=== PATIENT | female | born 1990 | race Caucasian/White ===

== ENCOUNTER 2017-04-08 05:50 | Inpatient (IN) ==
[2017-04-08 06:17] VITALS: BMI 28.4
[2017-04-08] MEDS: LR 1,000 ML IV PRN ×2 (06:35→08:28)
[2017-04-08] MEDS ORDERED: CALCIUM CARBONATE Chewable 500mg TABLET PO PRN (06:36)
[2017-04-08] MEDS ORDERED: MAG-AL + SIM ORAL LIQUID 30ml PO PRN (06:36)
[2017-04-08] MEDS ORDERED: METHYLERGONOVINE 0.2 MG/ML INJECTION IM PRN (06:36)
[2017-04-08] MEDS ORDERED: CARBOPROST 250 MCG/ML INJECTION IM PRN (06:36)
[2017-04-08] MEDS ORDERED: ACETAMINOPHEN 500 MG TABLET PO PRN (06:36)
[2017-04-08] MEDS ORDERED: LIDOCAINE 1% (10mg/ml) 2mL INJ PF SDV ID PRN (06:36)
[2017-04-08] MEDS ORDERED: AMPICILLIN 2 GM in NS 100 ML IV ONE (06:41)
[2017-04-08] MEDS ORDERED: NALOXONE 0.4 MG/ML INJECTION IVP PRN (07:44)
[2017-04-08] MEDS ORDERED: ROPIVACAINE 1% 10MG/ML INJ 200 MG, SUFentanil 50 MCG in NS 100 ML EPI PRN (07:44)
[2017-04-08] MEDS ORDERED: ONDANSETRON 4 MG/2 ML INJECTION IVP PRN (07:44)
[2017-04-08] MEDS ORDERED: DiphenhydrAMINE 50 MG/ML INJECTION IVP PRN (07:44)
--- NOTE | 2017-04-08 07:44 | Anesthesia Preoperative Report ---
Anesthesia Epidural/Spinal Rec - Date and Time Date: 04/08/17 Preoperative Diagnosis: Procedure: Labor Epidural Plan: Epidural - Vital Signs Vital Signs: Temperature 97.1 F 04/08/17 06:43 Pulse Rate 93 04/08/17 06:43 Respiratory Rate 18 04/08/17 06:43 Blood Pressure 135/85 04/08/17 06:43 Pulse Oximetry 98 04/08/17 06:43 /Para: P:1 - Medictaions & Allergies Inpatient Medications: Current Medications Acetaminophen (Tylenol) 500 - 1,000 mg PO Q4H PRN PRN Reason: Pain Al Hydroxide/Mg Hydroxide (Maalox Plus) 30 ml PO Q3H PRN PRN Reason: Indigestion Calcium Carbonate (Tums) 500 - 1,000 mg PO Q2H PRN PRN Reason: Indigestion Carboprost Tromethamine (Hemabate) 250 mcg IM O PRN PRN Reason: .Downtime Lactated Ringer's (Lactated Ringers) 1,000 mls @ 999 mls/hr IV .Q1H1M PRN Last Admin: 04/08/17 06:35 Dose: 999 mls/hr Ampicillin Sodium 1 gm/ Sodium (Chloride) 100 mls @ 200 mls/hr IV Q4H AIXA Lidocaine HCl (Xylocaine-Mpf 1% Vial) 0.2 mg ID O PRN PRN Reason: IV Start Methylergonovine Maleate (Methergine) 0.2 mg IM O PRN Misoprostol (Cytotec) 800 mcg NC ONCE PRN Allergies/Adverse Reactions: Allergies Allergy/AdvReac Type Severity Reaction Status Date / Time aspirin Allergy Intermediate SWELLING Verified 04/08/17 07:14 ibuprofen Allergy Intermediate SWELLING Verified 04/08/17 07:14 - Home Medications Home Medications: Home Medications Medication Instructions Recorded Confirmed Type Vit 18/Iron Cb/Fa/Dss 1 each PO DAILY #0 12/08/12 04/08/17 History ([facility] Tablet) raNITIdine HCl [Zantac] 1 tab PO DAILY 03/24/17 04/08/17 History - Surgical History Anesthesia Reactions: None Hx Family Anesthesia Reaction: No History of Motion Sickness: No - Social History Second Hand Exposure: No Substance Use Type: does not use Alcohol Intake Frequency: does not drink Hx Chewing Tobacco Use: No - Pertinent Findings Lab Data: CBC and BMP 04/08/17 06:42 EKG Rhythm: Normal Sinus Rhythm - Physical Exam Respiratory Exam: lungs clear Cardiovascular Exam: regular rate and rhythm, no murmur - Airway Assessment Mallampati Score: II TMD: 3 Fingerbreadths Neck Extension: good Overall Assessment: no airway concerns - ASA ASA Score: 2 - Discussion Discussion: Discussed risks/options/alternatives of anesthesia and questions answered. Patient consents. Nursing pain assessment noted. Anesthesia Discussion: spouse Attestation Statement: Prior to the delivery of any anesthetic medication, I examined the patient, developed the plan, obtained the patient's consent and discussed the risk and benefits of the procedure with the patient/guardian.
[2017-04-08] MEDS ORDERED: AMPICILLIN 1 GM in NS 100 ML IV SCH (10:45)
[2017-04-08] MEDS ORDERED: OXYTOCIN DRIP 30 UNIT/500 ML ML IV SCH (13:48)
[2017-04-08] MEDS ORDERED: HYDROCORTISONE 2.5% CREAM 30gm RECTALLY PRN (13:48)
[2017-04-08] MEDS ORDERED: DiphenhydrAMINE 25 MG CAPSULE PO PRN (13:48)
--- NOTE | 2017-04-08 14:59 | Labor and Delivery Note ---
DATE: 04/08/2017 Jade is a 26-year-old 2, para 1 at 38 weeks 6 days gestational age who presented to [facility] with complaints of contractions and was found to be 6 cm dilated. She received an epidural. Her membranes were ruptured artificially returning clear fluids. She progressed nicely throughout labor. She pushed for approximately an hour. She had a spontaneous vaginal delivery in the LEIDA position of a viable male , Apgars 8/9, weight 3349 g, name "Zander". The placenta delivered spontaneously. She had a very small perineal laceration. It was bleeding so it was repaired with a itceah-fl-ypazp of 2-0 chromic. Mom and baby tolerated the delivery well. JULIA
--- NOTE | 2017-04-08 15:29 | Anesthesia Postoperative Note ---
- Date and Time Date: 04/08/17 Time: 15:29 - Status Patient Participated in Evaluation: Patient Participated in Person Vital Signs: Temperature 97.1 F 04/08/17 06:43 Pulse Rate 93 04/08/17 06:43 Respiratory Rate 18 04/08/17 06:43 Blood Pressure 135/85 04/08/17 06:43 Pulse Oximetry 98 04/08/17 06:43 Respiratory Function: Airway Patent Cardiovascular Function: Regular Pulse EKG: Sinus Rhythm Mental Status: Alert and Oriented Pain Intensity: 0 Hydration: Taking PO Fluids Complications During Recover: None Apparent - Follow-Up Instructions Instructions: Per Surgeon
[2017-04-08] MEDS: HYDROCODONE/APAP 5mg/325mg TABLET PO PRN (19:14)
[2017-04-09] MEDS: HYDROCODONE/APAP 5mg/325mg TABLET PO PRN ×2 (02:35→14:49)
--- NOTE | 2017-04-09 10:55 | OB/GYN Progress Note ---
OB-PP Progress Note - General PPD1 Maternal Group B Strep: Positive Maternal blood type: B+ Maternal Rubella Status: Immune - Subjective Date: 04/09/17 Lochia: Minimal Pain: contolled Voiding: voiding - Objective Vital Signs: Last Vital Signs Temp 98.1 F 04/08/17 23:30 Pulse 80 04/08/17 23:30 Resp 16 04/08/17 23:30 BP 134/68 04/08/17 23:30 Pulse Ox 98 04/08/17 23:30 Urine Output: good General: alert and oriented - Assessment Assessment: , GBS positive - Plan Plan: routine care Expected date of discharge: 04/10/17
[2017-04-09] MEDS: DOCUSATE CALCIUM 240 MG CAPSULE PO SCH (16:56)
[2017-04-09 17:01] VITALS: RESP 16
[2017-04-10] MEDS: HYDROCODONE/APAP 5mg/325mg TABLET PO PRN ×2 (02:21→08:12)
[2017-04-10 06:15] VITALS: BP 115/65; PULSE 68; TEMP 97.9; O2SAT 96
[2017-04-10] MEDS: DOCUSATE CALCIUM 240 MG CAPSULE PO SCH (08:13)
--- NOTE | 2017-04-10 09:33 | OB/GYN Progress Note ---
OB-PP Progress Note - General PPD2 - Subjective Date: 04/10/17 Lochia: Minimal Pain: contolled - Objective Vital Signs: Last Vital Signs Temp 97.9 F 04/10/17 05:00 Pulse 68 04/10/17 05:00 Resp 16 04/10/17 05:00 BP 115/65 04/10/17 05:00 Pulse Ox 96 04/10/17 05:00 Urine Output: good General: alert and oriented - Assessment Assessment: , GBS positive - Plan Plan: routine care, discharge home, continue PNV
== END 2017-04-10 11:33 | disposition home or self-care (01) | DRG 775 ==
LOC: OBOBS 05:50 → MC 05:55
PROVIDERS: ADMIT Obstetrics & Gynecology; ATTEND Obstetrics & Gynecology

== ENCOUNTER 2017-09-26 01:07 | Observation (INO) ==
[2017-09-26] MEDS ORDERED: ONDANSETRON 4 MG/2 ML INJECTION IVP ONE ×2 (01:24→03:58)
[2017-09-26] MEDS ORDERED: NS 1,000 ML IV ONE (01:24)
--- NOTE | 2017-09-26 01:28 | Emergency Department Report ---
General Adult HPI - General Chief complaint: Nausea/Vomiting/Diarrhea Stated complaint: v/d Time Seen by Provider: 09/26/17 01:23 Source: patient, family Mode of arrival: ambulatory Limitations: no limitations - History of Present Illness HPI narrative: 27-year-old female presents to the emergency department with a chief complaint of generalized abdominal discomfort with nausea and vomiting. She noted onset of symptoms earlier today while at home. Patient states she has had "multiple episodes of diarrhea." She has had 2 or 3 episodes of nonbloody nonbilious emesis. No blood in the stool. She describes her generalized abdominal discomfort as moderate. It is dull and crampy. No radiation. No other complaints or associated symptoms at this time. She was at home when her symptoms began. Symptoms have been persistent in nature since onset. - Related Data Home Medications Medication Instructions Recorded Confirmed Vit Calc,Iron,Folic 1 each PO DAILY #0 12/08/12 09/26/17 [ Vitamins] Norethindrone-Ethinyl Estrad 1 tab PO DAILY 06/07/17 09/26/17 [Pirmella 1-35-28 Tablet] Allergies Allergy/AdvReac Type Severity Reaction Status Date / Time aspirin Allergy Intermediate SWELLING Verified 09/26/17 01:25 ibuprofen Allergy Intermediate SWELLING Verified 09/26/17 01:25 hydrocodone AdvReac Intermediate ears Verified 09/26/17 01:25 ringing, everything is foggy Review of Systems Constitutional: Denies: fever, chills Eyes: Denies: eye pain, vision change ENT: Denies: ear pain, throat pain Cardiovascular: Denies: chest pain, palpitations Respiratory: Denies: cough, dyspnea Gastrointestinal: Reports: abdominal pain, nausea, vomiting, diarrhea Genitourinary: Denies: urgency, dysuria Musculoskeletal: Denies: back pain, arthralgia Integumentary: Denies: erythema, rash Neurological: Denies: headache, numbness Psychiatric: Denies: anxiety, depression Endocrine: Denies: polydipsia, polyuria Hematological/Lymphatic: Denies: easy bruising, lymphadenopathy Allergic/Immunologic: Denies: facial swelling, urticaria PFSH Patient Stated Medical History Migraine Yes Bronchitis Yes: a month ago. Sleep Apnea No Other GI Yes: frequent diarrhea Hx Urinary Tract Infection Yes Herpes No Human Immunodeficiency Virus ( No HIV) MRSA No Anesthesia Reactions No Substance Use Disorder No Abnormal Pap Yes Maternal Gestational Diabetes No Now Yes Other Reproductive Yes: lmp [facility] Medical History (Last Updated 05/24/17 @ 09:11 by Hansel Louis MD) Migraine headache (Chronic Medical) Bronchitis (Resolved Medical) Last episode in 2016 Surgical History: * Tonsillectomy and Adenoidectomy - ~1999. Family History: Family History (Last Updated 05/24/17 @ 08:46 by Akin Olson) Mother Colon polyps Father Colon polyps Diabetes Maternal Grandmother Dementia Paternal Grandfather Cancer of lung - Social History Smoking status: Former smoker second hand exposure: No Substance use type: does not use Alcohol intake frequency: does not drink Household members: spouse, children Current occupational status: unemployed Does patient use chewing tobacco?: No Physical Exam - Limitations Limitations: no limitations - General General appearance: alert, in no apparent distress - Normal Exams: Head:: Normocephalic without trauma Eyes:: Pupils are PERRLA w/ EOMI, No scleral icterus, irritation, or foreign bodies noted ENMT:: No facial trauma, nasal exudates, pharyngeal erythema, or exudates are noted Dental: No fractured, loose, or missing teeth noted Neck:: Full range of motion, without adenopathy, JVD, bruits or thyromegaly Chest/Respirations:: Clear all brody, with good airflow, and symmetry bilaterally Cardiovascular:: Regular rate and rhythm, without murmur or gallop, Pulses 2+ all extremities, capillary refill, <2 seconds all extremities Abdomen:: Bowel sounds positive, soft, non-tender, non-distended, no hepatosplenomegaly, masses or bruits noted Lymphatic:: No lymphadenopathy, or lymphedema noted Musculoskeletal:: No tenderness, or deformity noted, good range of motion, all extremities Integumentary:: No rashes, hives, or bruising noted, hair and nails, without abnormality Neurological:: Patient is alert, and oriented, cranial nerves, motor/sensory/ cerebellar, exams w/o gross deficits, to observation Psychiatric:: Patient exhibits, appropriate attention, emotion and affect Course Vital Signs Temperature 97.8 F 09/26/17 01:07 Pulse Rate 133 H 09/26/17 01:07 Respiratory Rate 18 09/26/17 01:07 Blood Pressure 143/91 H 09/26/17 01:07 Pulse Oximetry 98 09/26/17 01:07 Temperature 97.8 F 09/26/17 01:07 Pulse Rate 100 09/26/17 03:03 Respiratory Rate 16 09/26/17 02:15 Blood Pressure 150/100 H 09/26/17 03:03 Pulse Oximetry 100 09/26/17 03:03 Medical Decision Making - MDM Narrative Medical decision making narrative: Labs/imaging were discussed in detail with the patient and family and questions are answered. Patient is given 1 L normal saline intravenously. She is given 4 mg of Zofran intravenously with improvement of symptoms. Due to the patient' s leukocytosis and pronounced tachycardia upon arrival to the emergency department she will be observed in the hospital overnight. Patient and family are in agreement with the current plan of management. She is admitted to the service of the hospitalist after discussion with Dr. Zavala in improved condition. No further orders from accepting physician who is in agreement with the current plan of management. She is admitted to the hospital in improved condition. - Differential Diagnosis gastroenteritis, viral syndrome, dehydration, UTI - Lab Data Result diagrams: 09/26/17 01:57 09/26/17 01:57 Lab Results 09/26/17 09/26/17 09/26/17 Range/Units 01:57 01:57 01:57 WBC 31.1 H* (4.5-11.0) T/MM3 RBC 5.44 H (4.00-5.20) M/MM3 Hgb 16.9 H (12-16) GM/DL Hct 51.1 H (36-46) % MCV 93.9 (80-100) UM3 MCH 31.1 (26-34) UUG MCHC 33.1 (31-37) GM/DL RDW Std Deviation 43.5 (36.9-50.2) FL Plt Count 310 (130-400) T/MM3 MPV 11.0 (9.4-12.4) UM3 Immature Gran % (Auto) Not performed Neut % (Auto) Not performed Lymph % (Auto) Not performed Gaines % (Auto) Not performed Eos % (Auto) Not performed Baso % (Auto) Not performed Neut # (Auto) Not performed Lymph # (Auto) Not performed Gaines # (Auto) Not performed Eos # (Auto) Not performed Baso # (Auto) Not performed Abs Immat Gran (auto) Not performed Neutrophils % (Manual) 92.0 H (33-66) % Band Neutrophils % 1.0 (0-6) % Lymphocytes % (Manual) 5.0 L (23-45) % Monocytes % (Manual) 2.0 (0-9.0) % Neutrophils # (Manual) 28.6 H (1.8-7.7) T/MM3 Band Neutrophils # 0.3 T/MM3 Lymphocytes # (Manual) 1.6 (1-4.8) T/MM3 Monocytes # (Manual) 0.6 (0-0.8) T/MM3 RBC Morph Comment Normal Turbidity < 20 (0-20) Sodium 145 H (134-144) MEQ/L Potassium 4.5 (3.6-5) MEQ/L Chloride 104 (98-107) MEQ/L Carbon Dioxide 24 (22-30) MEQ/L Anion Gap 17 H (5-15) MEQ/L BUN 18.0 H (7-17) MG/DL Creatinine 0.7 (0.7-1.2) mg/dL GFR Calculation 102 BUN/Creatinine Ratio 26 (6-26) RATIO Glucose 175 H (65-110) MG/DL Calculated Osmolality 285 H (261-280) MOSM/KG Calcium 10.0 (8.4-10.2) MG/DL Total Bilirubin 0.60 (0.20-1.30) MG/DL Icterus Index < 2 (0-7) AST 42 H (14-36) U/L ALT 34 (1-35) U/L Alkaline Phosphatase 101 (38-126) U/L Total Protein 8.7 H (6.3-8.2) g/dL Albumin 4.9 (3.5-5.0) g/dL Globulin 3.8 H (2.4-3.6) G/DL Albumin/Globulin Ratio 1.3 (1.1-2.2) RATIO Lipase 54 (23-300) U/L Serum , Qual Negative (Negative) Specimen Hemolysis < 15 (0-25) Ur Collection Type Urine Color (YELLOW) Urine Clarity Urine pH (5.0-8.0) Ur Specific [place] (1.015-1.025) Urine Protein (NEGATIVE) Urine Glucose (UA) (NEGATIVE) Urine Ketones (NEGATIVE) Urine Occult Blood (NEGATIVE) Urine Nitrate (NEGATIVE) Urine Bilirubin (NEGATIVE) Urine Urobilinogen (NORMAL) EU/DL Ur Leukocyte Esterase (NEGATIVE) Urinalysis Comment 09/26/17 Range/Units 02:40 WBC (4.5-11.0) T/MM3 RBC (4.00-5.20) M/MM3 Hgb (12-16) GM/DL Hct (36-46) % MCV (80-100) UM3 MCH (26-34) UUG MCHC (31-37) GM/DL RDW Std Deviation (36.9-50.2) FL Plt Count (130-400) T/MM3 MPV (9.4-12.4) UM3 Immature Gran % (Auto) Neut % (Auto) Lymph % (Auto) Gaines % (Auto) Eos % (Auto) Baso % (Auto) Neut # (Auto) Lymph # (Auto) Gaines # (Auto) Eos # (Auto) Baso # (Auto) Abs Immat Gran (auto) Neutrophils % (Manual) (33-66) % Band Neutrophils % (0-6) % Lymphocytes % (Manual) (23-45) % Monocytes % (Manual) (0-9.0) % Neutrophils # (Manual) (1.8-7.7) T/MM3 Band Neutrophils # T/MM3 Lymphocytes # (Manual) (1-4.8) T/MM3 Monocytes # (Manual) (0-0.8) T/MM3 RBC Morph Comment Turbidity (0-20) Sodium (134-144) MEQ/L Potassium (3.6-5) MEQ/L Chloride (98-107) MEQ/L Carbon Dioxide (22-30) MEQ/L Anion Gap (5-15) MEQ/L BUN (7-17) MG/DL Creatinine (0.7-1.2) mg/dL GFR Calculation BUN/Creatinine Ratio (6-26) RATIO Glucose (65-110) MG/DL Calculated Osmolality (261-280) MOSM/KG Calcium (8.4-10.2) MG/DL Total Bilirubin (0.20-1.30) MG/DL Icterus Index (0-7) AST (14-36) U/L ALT (1-35) U/L Alkaline Phosphatase (38-126) U/L Total Protein (6.3-8.2) g/dL Albumin (3.5-5.0) g/dL Globulin (2.4-3.6) G/DL Albumin/Globulin Ratio (1.1-2.2) RATIO Lipase (23-300) U/L Serum , Qual (Negative) Specimen Hemolysis (0-25) Ur Collection Type Urine, void-cc/notcc Urine Color Yellow (YELLOW) Urine Clarity Clear Urine pH 5.5 (5.0-8.0) Ur Specific [place] >=1.030 H (1.015-1.025) Urine Protein Trace A (NEGATIVE) Urine Glucose (UA) Negative (NEGATIVE) Urine Ketones 1+ A (NEGATIVE) Urine Occult Blood Negative (NEGATIVE) Urine Nitrate Negative (NEGATIVE) Urine Bilirubin 1+ A (NEGATIVE) Urine Urobilinogen 0.2 (NORMAL) EU/DL Ur Leukocyte Esterase Negative (NEGATIVE) Urinalysis Comment Microscopic not ind. - Radiology Data CT ABD/PELVIS: Small amount of fluid in the cul-de-sac. Mild fluid distention of the small bowel and colon consistent with ileus. No bowel obstruction or free air. Disposition Clinical Impression: Gastroenteritis, Dehydration Leukocytosis Qualifiers: Leukocytosis type: other Qualified Code(s): D72.828 - Other elevated white blood cell count Disposition: 02 To [facility] Condition: Improved Time of Disposition: 03:30 - Seen By: physician
[2017-09-26] MEDS: SALINE FLUSH 10ml SYRINGE IVF PRN ×3 (02:02→04:42)
--- NOTE | 2017-09-26 04:00 | History & Physical Report ---
History of Present Illness Date: 09/26/17 Chief complaint: abd pain n/v/d HPI: 27-year-old female presents to the emergency department with a chief complaint of generalized abdominal discomfort with nausea and vomiting. She noted onset of abd pain on Tuesday, she commonly has loose stools (has had for 2 years, no workup by GI as of yet) symptoms of N/v around 730 PM vomited large amts x 2, earlier today while at home. Patient states she has had "multiple episodes of diarrhea.". No blood in the stool. She describes her generalized abdominal discomfort as moderate to sevre (03/13 initially, now after zofran 08/13) . It is dull. No radiation. No other complaints or associated symptoms at this time. She was at home when her symptoms began. Symptoms have been persistent in nature since onset. She has not had GI workup, told by her PCP maybe sprue but not formally tested. She has tried dietary modifications wo much change, has not gone gluten free, never tried lactaid. She did finish a zpak last week for what soiunds like URI/pharyngitis but denies strep Review of Systems All systems PM: 10-point ROS was reviewed, no additional remarkable complaints except Review of systems: ;had some redness in face, eyes mouth, hands and erlier today took a benadryl that helped those sx, but began vomiting following that. Past Medical History Patient Stated Medical History Migraine Yes Bronchitis took z elvin last week Sleep Apnea No Other GI Yes: frequent diarrhea Hx Urinary Tract Infection Yes Herpes No Human Immunodeficiency Virus ( No HIV) MRSA No Anesthesia Reactions No Substance Use Disorder No Abnormal Pap Yes Maternal Gestational Diabetes No Now No, has 5 month old now Other Reproductive Yes: lmp 2016 [facility] Medical History (Last Updated 05/24/17 @ 09:11 by Hansel Louis MD) Migraine headache (Chronic Medical) 1-2 per month Bronchitis (Resolved Medical) Last episode in 2016 Surgical History: * Tonsillectomy and Adenoidectomy - ~1999. Family History: Family History (Last Updated 05/24/17 @ 08:46 by Akin Olson) Mother Colon polyps Father Colon polyps Diabetes Maternal Grandmother Dementia Paternal Grandfather Cancer of lung Family History Updates: no new - Social History Smoking status: Former smoker Does patient use chewing tobacco?: No Medications Home Medications Medication Instructions Recorded Confirmed Type Vit Calc,Iron,Folic 1 each PO DAILY #0 12/08/12 09/26/17 History [ Vitamins] Norethindrone-Ethinyl Estrad 1 tab PO DAILY 06/07/17 09/26/17 History [Pirmella 1-35-28 Tablet] Allergies Allergy/AdvReac Type Severity Reaction Status Date / Time aspirin Allergy Intermediate SWELLING Verified 09/26/17 01:25 ibuprofen Allergy Intermediate SWELLING Verified 09/26/17 01:25 hydrocodone AdvReac Intermediate ears Verified 09/26/17 01:25 ringing, everything is foggy Exam Vital Signs: Temperature 97.8 F 09/26/17 01:07 Pulse Rate 100 09/26/17 03:03 Respiratory Rate 16 09/26/17 02:15 Blood Pressure 150/100 H 09/26/17 03:03 Pulse Oximetry 100 09/26/17 03:03 Height/Weight/BMI: Height 1.57 m Weight 77.5 kg Comments: In general she appears mildly ill no distress PLeasant, parents w her at bedside has a Antonette blanket Lungs CTA CV reg s m abd obese soft mild ttp diffusely w/o rebound or guarding. extr no edema Results - Labs CBC & Chem 7: 09/26/17 11:17 09/26/17 01:57 - Imaging and Cardiology CT scan - abdomen Additional comments: Per emergency room physician some small amount of free fluid in the cul-de-sac otherwise small bowel and colon fluid small umbilical hernia Assessment and Plan (1) Gastroenteritis Current visit: Yes Status: Acute (2) Dehydration Current visit: Yes Status: Acute (3) Leukocytosis Current visit: Yes Status: Acute Assessment and Plan: 1. likely acute infectious gastroenteritis - Admitted because white blood cell count is high dont have any evidence at this time of serious bacterial infection, did get Azith recently so could consider c diff if not getting better w conservative care, sounds like some sx of allergic reaction to something that responded to benadryl, probalby just viral. However, she has had chronic diarrhea (this episode different) and GI eval / referral I think is warranted. 2. Moderate dehydration 3. Chronic diarrhea - 2 years + - recommend she see a GI doctor, provide IV fluids and antiemetics clear liquids and advance diet as tolerated She spikes a fever or has persistent pain or symptoms consider stool studies/ abx but dont think indicated for now , c diff etc unlikely DVT Prophylaxis: other Resuscitation Status: Full Code - Physician Narrative Physician: Leyla tSiles MD Narrative: Date: 09/26/17 Time: 1600 Dr. Elliott's note reviewed. Mrs. Villarreal interviewed and examined. CC: Abdominal pain, nausea, vomiting, diarrhea HPI: Jade is a 27-year-old female who describes onset of generalized abdominal cramping in the upper abdomen 2 days ago. Yesterday she developed nausea followed by vomiting and then multiple episodes of diarrhea. Diarrhea was primarily watery although eventually became just small mucousy stools with scants amount of blood. Patient reports having loose stools chronically generally no more than 2 or 3 daily. She denies heartburn or indigestion. She has 2 young children and neither of them have been ill with gastrointestinal symptoms. Family has been passing around upper respiratory symptoms and she was recently on a Z-Elvin for bronchitis. This morning she continues to have minor epigastric discomfort when she lies flat on her back which she grades 2/10 compared to 8/10 last night. She is pain-free lying on her side. She is tolerating clear liquids and has had 3 loose stools since admission to the floor overnight. PH/SH/FH: agree with that recorded above by Dr. Elliott. She has a history of allergic rhinitis and pilonidal cyst repair in June 2017; no history of alcohol or illicit drug use. 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 She is a full code. In addition to family history described above she reports her maternal grandfather had leukemia. ROS: 10 point review as reported by Dr. Elliott and chronic loose stools noted above. EXAM: General-NAD, alert, fluent speech; 98.7 124/70, 97% room air HEENT-PERRL, EOMI without nystagmus, conjunctiva clear, sclera anicteric, conjugate gaze, facial structures symmetric, oropharynx clear, neck supple and without adenopathy Lungs-respirations nonlabored, good airflow, breath sounds clear Cardiac-regular rhythm, S1-S2 Abd-bowel sounds present, soft, mild tenderness on palpation in the epigastrium without guarding Ext-without edema Skin-without generalized rash, urticaria, or evidence of wounds Neuro-cranial nerves 3-12 intact, motor tone/power normal, sensation intact to light touch Psych-pleasant, calm, cooperative DATA: Overnight data as described above; repeat white count this morning 14.8 with 76% neutrophils, 2% bands, 19% lymphocytes, 2% monocytes, 1% eosinophils hemoglobin; 13.5 following hydration. A/P: Acute gastroenteritis Dehydration Leukocytosis Chronic diarrhea hx migraine headaches Allergic rhinitis Clinically improving with IV fluids. Received antiemetics and Lomotil earlier today but has not required repeat doses of either. Tolerating clear liquids. IV fluids to be discontinued when current bag is completed, advance diet as tolerated. Orthostatics to be assessed. Reevaluate clinical status later today to determine if stable for discharge or if additional fluids will be needed. PCP-Dr. Edwige Cabrera [facility] Course Summary Disclaimer: The visit summary below is not to be considered part of the above Progress Note.
[2017-09-26 04:32] VITALS: BMI 30.4
[2017-09-26] MEDS ORDERED: PROMETHAZINE 25 MG INJECTION IVP PRN (04:33)
[2017-09-26] MEDS ORDERED: ACETAMINOPHEN 325 MG TABLET PO PRN (04:33)
[2017-09-26] MEDS ORDERED: LR 1,000 ML IV SCH (04:33)
[2017-09-26] MEDS ORDERED: ONDANSETRON 4 MG/2 ML INJECTION IVP PRN (04:33)
[2017-09-26] MEDS ORDERED: LOPERAMIDE 2 MG CAPSULE PO PRN (04:33)
--- NOTE | 2017-09-26 08:05 | CT Scan Report ---
Indication: ABD Pain PROCEDURE: CT abdomen pelvis wo con: Encounter: Initial Comparison: None. Findings: Included portions of the lung bases are clear. Heart size normal. No pleural effusion. The upper abdominal structures are unremarkable in contour. Gallbladder is thin-walled and nondistended without definite stones. The pancreas is homogeneous in density and uniform in contour. The adrenal glands are normal. There is no hydronephrosis or perinephric collection. No definite nephrolithiasis or evidence for obstructing ureteral calculus. The abdominal aorta is nonaneurysmal. No retroperitoneal or mesenteric adenopathy. There is no clear bowel distention. There is liquid stool contents within the large bowel which may suggest enteritis. Pelvis: There is a small amount of free fluid in the pelvic cul-de-sac. The uterus is unremarkable. The ovaries are not definitely enlarged. The urinary bladder is not distended. Impression: Liquid contents within the large bowel suggesting enteritis. No clear evidence for obstruction or free air. A small amount of free fluid in the pelvic cul-de-sac which may be physiologic. No evidence for nephrolithiasis or evidence for obstructing ureteral calculus. .
[2017-09-26 16:10] VITALS: TEMP 97.6
[2017-09-26 16:11] VITALS: RESP 20; O2SAT 98
[2017-09-26 16:12] VITALS: BP 146/72; PULSE 84
--- NOTE | 2017-09-26 17:53 | Discharge Summary ---
Discharge Summary- Blank Discharge Summary: Diagnoses: Acute gastroenteritis -Nausea/vomiting -Diarrhea -Epigastric abdominal pain Dehydration Leukocytosis Chronic diarrhea Hospital course: Mrs. Villarreal was hospitalized with acute gastroenteritis early in the morning on . She was treated with IV fluids and received a single dose of Imodium and Zofran shortly after hospitalization. She was able to resume clear liquids the morning of admission and diet was advanced later in the afternoon. She was felt stable for discharge late afternoon on 09/26 on home medications with addition of Zofran when necessary if there is residual nausea. She is asked to follow up with Dr. Cabrera in 1-2 weeks.
== END 2017-09-26 18:30 | disposition home or self-care (01) ==
LOC: ED 01:07 → MED 01:07 → SUATTDRO 03:59 → MED 04:15
PROVIDERS: ADMIT Pediatrics; ATTEND Internal Medicine